=== PATIENT | male | born 1975 | race Caucasian/White ===

== ENCOUNTER 2022-04-27 23:39 | Emergency (ER) | payer OTHER ==
[~2022-04-27] VITALS: Ht 190.5 cm; Wt 109.3 kg
[2022-04-28] MEDS ORDERED: HYDROCODON-ACE1 EA10 PO (01:46)
== END 2022-04-28 02:11 | disposition home or self-care (01) ==
LOC: ED 23:39
DX: S30.0XXA Contusion of lower back and pelvis, initial encounter (principal); W19.XXXA Unspecified fall, initial encounter
CPT/HCPCS: 72131; 96374; 96375; 96376; 99283-25; A9270; J1170; J1885; J2405

== ENCOUNTER → 2022-12-07 | Emergency (ER) | payer OTHER ==
[~2022-12-07] VITALS: Ht 190.5 cm; Wt 102.1 kg
[~2022-12-07] MED LIST: BENZONATATE100 MG PO; HYDROCODON-ACE1 EA10 PO; PREDNISONE20 MG PO; VENTOLIN HFA18 GM INH; ZITHROMAX250 MG PO
[2022-12-07 23:30] VITALS: BP 153/80
--- NOTE | 2022-12-08 13:57 | EKG ---
[facility] [address] [facility] [place], [place] [address] Signed Normal sinus rhythm Normal ECG No previous ECGs available Confirmed by LYLY JOHANSEN MD ([id number]) on 12/08/2022 1:57:22 PM Electronically Signed By: LYLY JOHANSEN MD 12/08/22 1357 PATIENT NAME: PELON DAVIESDM ROSSI Electrocardiogram DATE OF : 79 PHYSICIAN: LYLY JOHANSEN MD REPORT #: [id number] REPORT IS CONFIDENTIAL AND NOT TO BE RELEASED WITHOUT AUTHORIZATION
== END ==
LOC: ED 19:25
DX: J20.9 Acute bronchitis, unspecified (principal); Z20.822 Contact with and (suspected) exposure to COVID-19
CPT/HCPCS: 36415; 71045; 80053; 83735; 84484; 85025; 87502; 93005; 93010; 94640; 94644; 96374; 96375; 99285-25; C9803; J1885; J2930; U0003

== ENCOUNTER 2023-05-06 11:25 | Emergency (ER) | payer OTHER ==
[~2023-05-06] VITALS: Ht 190.5 cm; Wt 97.5 kg
[2023-05-06] MEDS ORDERED: VALIUM10 MG PO (13:29)
[2023-05-06 15:48] VITALS: BP 145/83
== END 2023-05-06 15:50 | disposition home or self-care (01) ==
LOC: ED 11:25
DX: F43.81 Prolonged grief disorder (principal); S62.396A Other fracture of fifth metacarpal bone, right hand, initial encounter for closed fracture; W22.8XXA Striking against or struck by other objects, initial encounter; Z79.899 Other long term (current) drug therapy
CPT/HCPCS: 26605; 73130; 99283-25; A9270; J2250

== ENCOUNTER 2023-05-20 11:45 | Day surgery (SDC) | payer OTHER ==
[~2023-05-20] VITALS: Ht 188 cm; Wt 102.0 kg
[~2023-05-20 11:45] MED LIST changes: +VALIUM10 MG PO
[2023-05-20] MEDS ORDERED: MOTRIN IB200 M1 PO (12:24)
[2023-05-20 12:45] LABS: BASOPHILS 0.4 % (0-2); EOSINOPHILS 3.5 % (0-6); HEMATOCRIT 46.7 % (35.0-50.0); HEMOGLOBIN 16.1 g/dL (12.0-18.0); LYMPHOCYTES 11.8 % (24-44); MCH 29.8 (27-36); MCHC 34.4 g/dl (30-36); MCV 86.5 fl (81-99); NEUTROPHILS 78.3 % (39-80); PLATELET COUNT 297 K/uL (140-440); RDW 13.1 (10.5-15.0)
[2023-05-20 12:48] VITALS: BP 157/108
[2023-05-20 13:00] LABS: ALBUMIN 4.5 g/dL (3.4-5.0); ALBUMIN/GLOBULIN RATIO 1.36 (1.1-2.4); ANION GAP 14.1 (7-21); BILIRUBIN, TOTAL 0.9 ng/dL (0.2-1.0); BUN/CREATININE RATIO 14.6 (6.0-28.6); CALCIUM 9.2 mg/dL (8.5-10.1); CREATININE, SERUM 0.89 mg/dL (0.70-1.30); POTASSIUM 4.1 mmol/L (3.5-5.1); PROTEIN, TOTAL 7.8 g/dL (6.4-8.2)
[2023-05-20] MEDS ORDERED: HYDROCODON-ACE1 EA11 PO (15:03)
[2023-05-20] MEDS ORDERED: DICLOFENAC SODI75 MG PO (15:03)
--- NOTE | 2023-05-20 16:11 | NUR ---
05/20/23 1611 Aydee Roper 1458- PT ARRIVES TO PACU, SUPINE POSITION WITH OPA IN PLACE. 6L O2 PER MASK, PT MAINTAINING WITH JUST OPA. LR INFUSING TO LW IV. BREATHING EVEN AND NON LABORED. ALL MONITORS APPLIED. SPLINT IN PLACE TO RIGHT WRIST AND ARM ELEVATED ON PILLOWS. 1501- PT STARTING TO MOVE WITH CHANGING HEAD POSITION. PT OPENS EYES AND FOLLOWS COMMANDS TO REMOVE OPA, MASK REMAINS IN PLACE. PT IS CALM AND COOPERATIVE. 1505- PT DENIES PAIN, STATES "JUST EMOTIONAL". PT IS VERY TEARFUL AND MOVING ARM FOR BP, WILL ATTEMPT ANOTHER BP WHEN PT RELAXES. MOVED TO ROOM AIR AT THIS TIME. 1510- VITAL SIGNS STABLE. LR CONTINUES TO INFUSE, PT TEARFUL INTERMITTENTLY. CALM AND COOPERATIVE WITH STAFF. 1530- PT READY TO GO BACK TO DAY SURGERY, ALERT AND ANSWERING QUESTIONS. PT HAS SOME FEELING TO FINGERS ON RIGHT HAND, CAN PICK WHICH FINGER BEING TOUCHED AND ABLE TO MOVE SOME. REPORTS IT FEELS TINGLING LIKE WHEN IT FALLS ASLEEP AND WAKING BACK UP. 1540- PT BACK TO ROOM IN DAY SURGERY VIA BED. LR INFUSING. PT ALERT, NO SIGNS OF DISTRESS. SPLINT IN PLACE TO RIGHT ARM, CDI. REPORT AT BEDSIDE TO MILLY RN, CARE OF PT TURNED OVER AT THIS TIME. INTERMITTENTLY. ANSWERING QUESTIONS APPROPRIATELY. MOVED TO
--- NOTE | 2023-05-20 16:17 | NUR ---
LE 2324 PATIENT BACK TO ROOM 2. VITAL SIGNS COMPLETE. PATIENT DENIES PAIN. PATIENT STILL HAS NUMBNESS AND TINGLING IN RUE. CAP REFILL LESS THAN 3 SECONDS. WARM AND PINK. PATIENT SURGICAL SITE COVERED CLEAN, DRY AND INTACT. PATIENT DENIES BEING NAUSEATED. BREATHING EQUAL AND UNLABORED. OXYGEN SATURATIONS ABOVE 90% ON ROOM AIR. ALERT AND ORIENTED. IVF INFUSING. SCD'S ON. CALL LIGHT WITHIN REACH NO FUTHER NEEDS. NO QUESTIONS AT THIS TIME. WATER AND CRACKERS GIVEN. VALENTE 1615 BEST AGUAYO IN ROOM. REPORT GIVEN TO HER. PATIENT HAD NO QUESITONS AT THIS TIME.
[2023-05-20 16:47] VITALS: BP 139/93
--- NOTE | 2023-05-20 16:53 | NUR ---
PT DRESSING HIMSELF. TOLERATING WELL. PT REPORTS HE HAS NO PAIN OR NAUSEA AND STATES HE IS READY TO GO HOME.
--- NOTE | 2023-05-20 17:22 | NUR ---
1708- WHILE PT WAS BEING PROVIDED DC INSTRUCTIONS THE PT REPORTS HIS RIGHT ELBOW IS PAINFUL, RATING THE PAIN AN 8/10, STATES IT IS BURNING. 171- [facility] CRNA CALLED AND NOTIFIED. NOTIFIED TO TELL PT TO USE HEAT OR ICE PACKS AND NOT TO LEAVE IN PLACE FOR TOO LONG AND TO USE A BARRIER. PT AND PT'S NOTIFIED OF THIS. DR. KAUFMAN AFTER HOURS PHONE NUMBER PROVIDED ON DC INSTRUCTIONS WELL. 1718- PT REQUESTING PAIN MEDICATION FOR THIS.
[2023-05-20 17:37] VITALS: BP 152/98
--- NOTE | 2023-05-20 17:53 | NUR ---
173- PT AMBULATORY AROUND DAY SURGERY. PT STATES HE HAS CHRONIC PAIN AND WALKING HELPS HIM. 1741- PT SITTING ON THE EDGE OF THE BED. WAITING TIME AFTER PAIN MEDICATION ADMINISTRATION. PT'S PROVIDED DC INSTRUCTIONS. PT'S CRYING DURING DC INSTRUCTIONS. PT'S HAS NO REQUESTS AT THIS TIME. ALL QUESTIONS ANSWERED. PT'S SPLINT PROVIDED TO HIM IN PT'S BELONGING BAG. 1746- PT STATES HIS PAIN IS "STILL THERE", BUT HE WOULD LIKE TO GO HOME. PT AMBULATORY INTO A WHEELCHAIR AND ASSISTED INTO THE PASSENGER SIDE OF HIS VEHICLE. PT THANKFUL FOR HIS CARE.
--- NOTE | 2023-05-21 06:14 | EKG ---
[facility] [address] [facility] [place], [place] [address] Signed Normal sinus rhythm Normal ECG When compared with ECG of 07-DEC-2022 19:54, No significant change was found Confirmed by MARY RENAE MD ([id number]) on 05/21/2023 6:14:36 AM Electronically Signed By: MARY RENAE 05/21/23 0614 PATIENT NAME: GARRETT DAVIES Electrocardiogram DATE OF : 79 PHYSICIAN: MARY RENAE REPORT #: [id number] REPORT IS CONFIDENTIAL AND NOT TO BE RELEASED WITHOUT AUTHORIZATION
--- NOTE | 2023-05-21 07:29 | OR ---
[facility] [address] [facility] [place] [address] Signed DATE OF OPERATION: 05/20/2023 SURGEON: Sarah Macdonald MD PREOPERATIVE DIAGNOSIS: Right fifth metacarpal fracture, displaced. POSTOPERATIVE DIAGNOSIS: Right fifth metacarpal fracture, displaced. PROCEDURE PERFORMED: Open reduction and internal fixation, right 5th metacarpal. FITNESS ASSISTANT: None. ANESTHESIA: General. BLOOD LOSS: None. TOURNIQUET TIME: 17 minutes. IMPLANTS: A seven hole 1.5 mm wide plate with seven screws. BRIEF HISTORY: Ish is a 47-year-old gentleman who punched a wall after his son has . He was noted to have a displaced oblique fracture of the metacarpal with displacement. Risks and benefits of operative treatment were discussed with him. He elected to proceed. Once consent was obtained, he was taken to the operating room. After adequate anesthesia he was placed on operating table. All downside pressure points well padded. Hand table was placed. He was placed in the proximal arm sterile tourniquet. Initial closed reduction attempts were unsuccessful. There was no way to get the fracture even remotely close where it belonged. At that point, the arm was exsanguinated using Esmarch bandage and tourniquet inflated to 200 mmHg. The fracture was approached through a longitudinal incision on the superior lateral aspect of the of the fifth metacarpal. This was taken down the skin and subcutaneous tissue. The extensor tendons Electronically Signed By: SARAH MACDONALD MD 05/21/23 0729 PATIENT NAME: GARRETT DAVIES OPERATIVE REPORT DATE OF : 79 REPORT #: [id number] PHYSICIAN: SARAH MACDONALD MD PCP: JENNIFER REBOLLEDO MD REPORT IS CONFIDENTIAL AND NOT TO BE RELEASED WITHOUT AUTHORIZATION [facility] [address] [facility] [place] [facility] [place] [address] Signed were dissected free. The extensor digitorum was actually caught in. The fracture was intercalated between the fracture fragments, thus keeping the closed reduction from being successful. This was carefully fished out of the fracture and debris was cleared out. The fracture was then reduced and cross clamped and checked with the image intensifier and found to be good. The wide plate was then placed on the superior lateral aspect of the metacarpal and three screws were placed. This was again checked using the image intensifier and found to be in good position. The remaining screw holes were drilled and appropriate length screws were placed. The wound was copiously irrigated with normal saline, closed in layers using 3-0 Monocryl. The periosteum was closed underneath the tendons to protect him from the plate. The subcutaneous tissue was closed and the skin was closed with 3-0 Monocryl. The wound was sealed with Dermabond and Steri-Strips. The wound was dressed with Adaptic, gauze and an ulnar gutter splint. He tolerated the procedure well. All sponge, needle, and instrument counts were correct. Sarah Macdonald MD BA/VIOLETL /[id number] Copies: ~ Electronically Signed By: SARAH MACDONALD MD 05/21/23 0729 PATIENT NAME: KEKEGARRETTDM ROSSI OPERATIVE REPORT DATE OF : 79 REPORT #: [id number] PHYSICIAN: SARAH MACDONALD MD PCP: JENNIFER REBOLLEDO MD REPORT IS CONFIDENTIAL AND NOT TO BE RELEASED WITHOUT AUTHORIZATION
== END 2023-05-20 17:48 | disposition home or self-care (01) ==
LOC: DS 11:45
PROVIDERS: ATTEND Specialist
PROC: 0PSP04Z Reposition Right Metacarpal with Internal Fixation Device, Open Approach (ICD-10-PCS; principal; 2023-05-20 15:15)
DX: S62.306A Unspecified fracture of fifth metacarpal bone, right hand, initial encounter for closed fracture (principal); F43.10 Post-traumatic stress disorder, unspecified; E78.5 Hyperlipidemia, unspecified; W22.01XA Walked into wall, initial encounter
CPT/HCPCS: 01830; 36415; 64417; 73120; 76942; 80053; 85025; 93005; 93010; A9270; C1713; J0690; J1100; J2001; J2250; J2704; J2795; J3490; J7121

== ENCOUNTER 2023-07-20 12:07 | Emergency (ER) | payer OTHER ==
[~2023-07-20] VITALS: Ht 190.5 cm; Wt 95.2 kg
[~2023-07-20 12:07] MED LIST changes: +DICLOFENAC SODI75 MG PO; +HYDROCODON-ACE1 EA11 PO; +MOTRIN IB200 M1 PO
[2023-07-20] MEDS ORDERED: PROZAC40 MG PO (12:25)
[2023-07-20] MEDS ORDERED: NORVASC5 MG PO (12:57)
[2023-07-20 13:04] VITALS: BP 131/98
== END 2023-07-20 13:06 | disposition home or self-care (01) ==
LOC: ED 12:07
DX: F41.9 Anxiety disorder, unspecified (principal); I10 Essential (primary) hypertension; Z63.4 Disappearance and death of family member; Z79.899 Other long term (current) drug therapy
CPT/HCPCS: 99283

== ENCOUNTER 2023-09-20 06:40 | Day surgery (SDC) | payer OTHER ==
[2023-09-16 09:25] VITALS: BP 137/95
[~2023-09-20] VITALS: Ht 188 cm; Wt 90.9 kg
[~2023-09-20 06:40] MED LIST changes: +LISINOPRIL20 MG PO; +MIDAZOLAM HCL 5 MG/5 ML VIAL IV PRN; +NORVASC5 MG PO; +PROZAC40 MG PO; +fentaNYL citrate 100 MCG/2 ML VIAL IV PRN
[2023-09-20] MEDS ORDERED: IBLOOD GLUCOSE TEST STRIP 1 EA TEST VI PRN ×2 (07:00→08:00)
[2023-09-20] MEDS ORDERED: LACTATED RINGER'S 1,000 ML IV SCH (07:00)
[2023-09-20] MEDS ORDERED: LIDOCAINE HCL 1% 5 ML SDV INJ ONE (07:00)
[2023-09-20 07:11] VITALS: BP 137/70
[2023-09-20] MEDS ORDERED: LIDOCAINE HCL 2% 5 ML SDV ONE (07:53)
[2023-09-20] MEDS ORDERED: propofoL 200 MG/20 ML VIAL ONE ×2 (07:53→08:26)
[2023-09-20] MEDS ORDERED: fentaNYL citrate 100 MCG/2 ML VIAL IV PRN (08:00)
[2023-09-20] MEDS ORDERED: NALOXONE HCL 0.4 MG SYR IV PRN (08:00)
[2023-09-20] MEDS ORDERED: MIDAZOLAM HCL 2 MG/2 ML VIAL IV PRN (08:00)
[2023-09-20] MEDS ORDERED: ondansetron HCL 4 MG/2 ML VIAL IV PRN (08:00)
[2023-09-20 09:00] VITALS: BP 121/71
--- NOTE | 2023-09-20 09:26 | NUR ---
09/20/23 0926 Daina Soliman 0878 PT ARRIVED TO PACU ON 2L NC, PT AWAKE AND TALKING TO RN. PT DENEIS NAUSEA AND PAIN. 0847 O2 REMOVED. 0900 PT ROOLED TO BACK AND SITTING UP DRINKING SODA PER REQUEST. PT DENIES CONCERNS. VSS. 0915 PT DRESSED HIMSELF AND DC INSTRUCTIONS GIVEN. PT DC WITH PAPERWORK VIA WC TO HIS .
--- NOTE | 2023-09-20 10:09 | OR ---
[facility] [address] [place], [place] [address] Signed DATE OF OPERATION: 09/20/2023 SURGEON: Alexander Keen MD PREOPERATIVE DIAGNOSIS: Screening. POSTOPERATIVE DIAGNOSIS: Minimal to moderate internal hemorrhoids. PROCEDURE: Colonoscopy without biopsy. ESTIMATED BLOOD LOSS: None. INDICATIONS: Patrick is a 48-year-old gentleman, asked to see me for his initial screening colonoscopy. He said he has no lower GI complaints. There is no family history of colon cancer or polyps. In the office, I did give him a brochure on colonoscopy. We had reviewed the nature of the test. There is risk including, but not limited to gas bloating, crampy abdominal pain, bleeding, perforation requiring surgery, and missed diagnosis. We also reviewed the written instructions for the bowel prep line by line. In addition, he likes to use some marijuana daily for pain rather than his hydrocodone. He also has significant PTSD from his service. He has a full face, thomas and mustache as well. We decided it would be best that he have moderate anesthesia care with propofol infusion. That proved to be a duron decision. He had expressed understanding and wished to proceed. PROCEDURE IN DETAIL: Patrick was taken into our endoscopy suite and placed in the left lateral decubitus position. He was given monitored anesthesia care with propofol infusion per our nurse medical dir. A digital rectal exam was performed and this was unremarkable. He had no external hemorrhoids. He had good sphincter tone. There were no masses. The adult colonoscope was introduced and advanced all around into the cecum under direct visualization of the camera without difficulty. His prep was quite good. We could easily see the appendiceal orifice and the ileocecal valve. The scope was then slowly withdrawn. We took several pictures throughout for photodocumentation. There were no polyps. There was no diverticulosis. In the rectum, the scope had been retroflexed and he does have minimal to moderate internal hemorrhoid columns. After this, the gas was Electronically Signed By: ALEXANDER KEEN MD 09/20/23 1009 PATIENT NAME: PATRICK DAVIES OPERATIVE REPORT DATE OF : 79 REPORT #: [id number] PHYSICIAN: ALEXANDER KEEN MD PCP: JENNIFER REBOLLEDO MD REPORT IS CONFIDENTIAL AND NOT TO BE RELEASED WITHOUT AUTHORIZATION [facility] [address] [place] [id number] Signed suctioned out and the colonoscope removed. Patrcik tolerated the procedure quite well. RECOMMENDATIONS: Patrick can return in 10 years for repeat screening colonoscopy. He will likely need monitored anesthesia care in the future. MD DAVION Ahumada/VIOLETL /[id number] cc: [facility] [place] MD Copies: ALEXANDER KEEN MD ~ Electronically Signed By: ALEXANDER KEEN MD 09/20/23 1009 PATIENT NAME: PATRICK DAVIES FLO OPERATIVE REPORT DATE OF : 79 REPORT #: [id number] PHYSICIAN: ALEXANDER KEEN MD PCP: JENNIFER REBOLLEDO MD REPORT IS CONFIDENTIAL AND NOT TO BE RELEASED WITHOUT AUTHORIZATION
== END 2023-09-20 09:15 | disposition home or self-care (01) ==
LOC: OPS 06:40 → DS 06:40 → OPS 08:15 → DS 09:00 → OPS 09:15
PROVIDERS: ATTEND Colon & Rectal Surgery
PROC: 0DJD8ZZ Inspection of Lower Intestinal Tract, Via Natural or Artificial Opening Endoscopic (ICD-10-PCS; principal; 2023-09-20 08:15)
DX: Z12.11 Encounter for screening for malignant neoplasm of colon (principal); F43.10 Post-traumatic stress disorder, unspecified; I10 Essential (primary) hypertension; E78.5 Hyperlipidemia, unspecified
CPT/HCPCS: J2001; J2704; J7121